=== PATIENT | female | born 1995 | race Caucasian/White ===

== ENCOUNTER 2016-06-11 11:40 | Emergency (ER) | payer OTHER ==
[2016-06-11] MEDS ORDERED: ONDANSETRON 4 MG/2 ML VIAL IVP ONE (12:11)
[2016-06-11] MEDS ORDERED: NS 1,000 ML IV ONE (12:11)
[2016-06-11 12:38] LABS: % IMMATURE GRANULYOCYTES 0.3 % (0.0-1.1); ABSOLUTE IMMATURE GRANULOCYTES 0.02 10^3/uL (0.00-0.10); ADD DIFF? NO; ADD MORPH? NO; ADD SCAN? NO; ATYPICAL LYMPHOCYTE FLAG 20 (0-99); FRAGMENT RBC FLAG 0 (0-99); HEMATOCRIT 41.9 % (38.0-47.0); HEMOGLOBIN 14.4 g/dL (12.6-16.3); LEFT SHIFT FLG 0 (0-99); LIPEMIA HEMOLYSIS FLAG 90 (0-99); MEAN CELL HEMOGLOBIN 29.6 pg (27.9-34.1); MEAN CELL HEMOGLOBIN CONCENTR. 34.4 g/dL (32.4-36.7); MEAN CELL VOLUME 86.2 fL (81.5-99.8); MEAN PLATELET VOLUME 9.7 fL (8.7-11.7); PLATELET CLUMPS FLAG 50 (0-99); PLATELET COUNT 284 10^3/uL (150-400); RED BLOOD CELL COUNT 4.86 10^6/uL (4.18-5.33); RED CELL DISTRIBUTION WIDTH 12.8 % (11.5-15.2)
[2016-06-11] MEDS ORDERED: LORazepam 2 MG/ML INJ IVP ONE (12:44)
[2016-06-11 12:48] LABS: ANION GAP 15 mEq/L (8-16); CARBON DIOXIDE 27 mEq/l (22-31); CHLORIDE 100 mEq/L (97-110); CREATININE 0.7 mg/dL (0.6-1.0); GLOMERULAR FILTRATION RATE > 60; GLUCOSE 97 mg/dL (70-100); POTASSIUM 4.1 mEq/L (3.5-5.2); SODIUM 142 mEq/L (134-144)
[2016-06-11 13:05] LABS: ALANINE AMINOTRANSFERASE 32 IU/L (9-52); ALBUMIN 5.1 g/dL (3.5-5.0); ALKALINE PHOSPHATASE 86 IU/L (38-126); ASPARTATE AMINOTRANSFERASE 32 IU/L (14-46); BILIRUBIN,TOTAL 1.7 mg/dL (0.1-1.4); BILIRUBIN-CONJUGATED 0.3 mg/dL (0.0-0.5); BILIRUBIN-UNCONJUGATED 1.4 mg/dL (0.0-1.1); TOTAL PROTEIN 8.5 g/dL (6.3-8.2)
--- NOTE | 2016-06-11 13:11 | EDPHY ---
H & P Stated Complaint: n/v - Personal History LMP (Females 10-55): IUD In Place Current Tetanus Diphtheria and Acellular Pertussis (TDAP): Yes - Medical/Surgical History Hx Asthma: No Hx Chronic Respiratory Disease: No Hx Diabetes: No Hx Cardiac Disease: No Hx Renal Disease: No Hx Cirrhosis: No Hx Alcoholism: No Hx HIV/AIDS: No Hx Splenectomy or Spleen Trauma: No Other PMH: Factor V - Social History Smoking Status: Never smoked Time Seen by Provider: 06/11/16 12:06 HPI/ROS: Chief complaint: Nausea and vomiting History of present illness: This is a 21-year-old female who presents to the emergency department for evaluation of nausea and vomiting. Patient reports the onset of symptoms earlier this morning. Symptoms have been persistent. Vomit is nonbloody, nonbilious. She denies precipitating factors. She denies alleviating factors. She denies other associated signs or symptoms including no abdominal pain, no diarrhea or constipation, no urinary symptoms. She is under stress currently because she is taking finals, she wonders if this is contributing. No sick contacts, foreign travel or antibiotic use. Review of systems: A 10 point review of systems was obtained and other than described above was negative (Wm Reese) - Physical Exam Exam: General Appearance: Alert, nontoxic. Eyes: Pupils equal and round no pallor or injection. ENT, Mouth: Mucous membranes moist. Respiratory: There are no retractions, lungs are clear to auscultation. Cardiovascular: Regular rate and rhythm. Gastrointestinal: Abdomen is soft and nontender, no masses, bowel sounds normal. Neurological: Alert and oriented x4. Strength and sensation intact and symmetrical. Skin: Warm and dry, no rashes. Musculoskeletal: Neck is supple nontender. Extremities are symmetrical, full range of motion. Psychiatric: Patient is oriented X 3, there is no agitation. (Wm Reese) Constitutional: Initial Vital Signs Temperature (C) 37 C 06/11/16 11:42 Heart Rate 78 06/11/16 11:42 Respiratory Rate 16 06/11/16 11:42 Blood Pressure 121/86 H 06/11/16 11:42 O2 Sat (%) 98 06/11/16 11:42 O2 Delivery Mode Room Air Allergies/Adverse Reactions: No Known Drug Allergies Allergy (Verified 06/11/16 11:45) Medical Decision Making ED Course/Re-evaluation: Patient seen under the supervision of my secondary supervising physician Dr. Jackie Caal. Patient presents to the emergency department for nausea and vomiting. On presentation she is nontoxic. Vital signs are stable. Physical exam is unremarkable including benign abdominal exam. Blood studies are largely unremarkable. Patient is symptomatically treated with improvement in symptoms. At this time my suspicion for serious pathology is low. I do not believe imaging studies are warranted. Patient will be discharged home. Home care is discussed. She is asked to follow up with a primary care doctor for recheck. Strict return precautions are given. Patient voiced understanding and agreement with plan. (Wm Reese) Differential Diagnosis: Included but not limited to gastritis, gastroenteritis, biliary tract disease, pancreatitis, colitis, an associated complications (mW Reese) Other Provider: The patient was evaluated and managed by the Physician Data Capture Specialist/ Nurse Practitioner. My co-signature indicates that I have reviewed this chart and I agree with the findings and plan of care as documented. I am the secondary supervising physician. (Jackie Caal) - Data Points Laboratory Results: Laboratory Results 06/11/16 12:00 06/11/16 12:00 Medications Given: Discontinued Medications Sodium Chloride (Ns) 1,000 mls @ 0 mls/hr IV EDNOW ONE PRN Reason: Wide Open Stop: 06/11/16 12:12 Last Admin: 06/11/16 12:12 Dose: 1,000 mls Lorazepam (Ativan Injection) 0.5 mg IVP EDNOW ONE Stop: 06/11/16 12:45 Last Admin: 06/11/16 13:05 Dose: 0.5 mg Ondansetron HCl (Zofran) 4 mg IVP EDNOW ONE Stop: 06/11/16 12:12 Last Admin: 06/11/16 12:14 Dose: 4 mg Departure - Departure Disposition: Home, Routine, Self-Care Clinical Impression: Vomiting Condition: Good Instructions: Acute Nausea and Vomiting (ED) Additional Instructions: Follow-up with a primary care doctor for recheck If symptoms worsen or new symptoms develop return to the emergency room for recheck Referrals: NONE *PRIMARY CARE P,. [Primary Care Provider] - As per Instructions Mirta Cruz MD [Medical Doctor] - As per Instructions Stand Alone Forms: School Excuse
[2016-06-11 13:29] VITALS: BP 110/66; PULSE 61; RESP 18; TEMP 98.2; O2SAT 96
== END 2016-06-11 13:30 | disposition home or self-care (01) ==
DX: R11.10 Vomiting, unspecified (principal)
CPT/HCPCS: 96374; J2060; J2405